=== PATIENT | male | born 1940 | race Caucasian/White ===

== ENCOUNTER 2017-01-15 18:28 | Inpatient (IN) | payer OTHER ==
[2017-01-15] VITALS (10 sets, daily range): BP systolic 82–145; BP diastolic 52–79
[~2017-01-15] VITALS: Ht 167.6 cm; Wt 66.5 kg
[~2017-01-15 18:28] MED LIST: ARAVA10 M1 PO; ASPIRIN ADULT L81 M2 PO; ASPIRIN81 M1 PO; CEFTIN250 MG PO; COREG12.5 M1 PO; COUMADIN5 M2 PO; Coumadin3 MG PO; DUONEB 3 MG/3 ML3 M1 NEB; LOSARTAN POTASS25 M1 PO; PERCOCET 325 MG1 TA2 PO; PLAVIX75 MG PO; PRAVACHOL80 MG PO; PREDNISONE20 M1 PO; PREDNISONE20 MG PO; ROBITUSSIN AC 110 ML PO; VICODIN ES 7.51 EACH PO; VICODIN ES 7501 TAB PO; WARFARIN2 MG PO; ZITHROMAX Z PA250 MG PO
[2017-01-15 18:45] LABS: BASO # 0.1 10*3/uL (0.0-0.1); BASO % 0.4 % (0.0-1.0); EOS # 0.1 10*3/uL (0.0-0.4); EOS % 1.2 % (1.0-4.0); HEMATOCRIT 34.3 % (42.0-52.0); HEMOGLOBIN 10.2 g/dl (14.0-18.0); IG # 0.1 10*3/uL (0.0-0.1); LYMPH # 1.8 10*3/uL (1.3-4.4); LYMPH % 15.3 % (27.0-41.0); MEAN CELL VOLUME 86.6 fl (80.0-94.0); MEAN CORPUSCULAR HGB 25.8 pg (27.0-31.0); MEAN CORPUSCULAR HGB CONC 29.7 g/dl (33.0-37.0); MONO # 0.7 10*3/uL (0.1-1.0); MONO % 5.9 % (3.0-9.0); NEUT # 8.9 10*3/uL (2.3-7.9); NEUT % 76.6 % (47.0-73.0); NUCLEATED RED BLOOD CELL 0.2 % (0.0-0.0); PLATELET COUNT AUTOMATED 285 10*3/uL (130-400); RED BLOOD COUNT 3.96 10*6/uL (4.50-5.90); RED CELL DISTRI WIDTH 21.6 % (0-14.5); WHITE BLOOD COUNT 11.6 10*3/uL (4.8-10.8)
[2017-01-15 19:03] LABS: BILIRUBIN, TOTAL 0.6 mg/dl (0.2-1.0); MAGNESIUM 2.3 mg/dL (1.5-2.1); POTASSIUM 4.3 mmol/L (3.5-5.1); TOTAL PROTEIN 7.6 gm/dL (6.4-8.2)
[2017-01-15 19:05] LABS: TROPONIN I 0.153 ng/ml (<0.045)
[2017-01-15] MEDS ORDERED: CELEBREX100 MG PO (20:34)
[2017-01-15] MEDS ORDERED: COUMADIN5 M2 PO (20:34)
[2017-01-15] MEDS ORDERED: PREDNISONE5 MG PO (20:35)
[2017-01-15 22:39] LABS: INTERNATIONAL NORM RATIO 3.5 (2.0-3.5); PROTHROMBIN TIME 40.2 SECONDS (9.0-12.4)
[2017-01-16] VITALS: BP 116/51
[2017-01-16 04:00] VITALS: BP 117/63
[2017-01-16 05:48] LABS: BASO % 0.1 % (0.0-1.0); HEMATOCRIT 32.2 % (42.0-52.0); HEMOGLOBIN 9.5 g/dl (14.0-18.0); IG # 0.1 10*3/uL (0.0-0.1); LYMPH # 0.8 10*3/uL (1.3-4.4); LYMPH % 9.4 % (27.0-41.0); MEAN CELL VOLUME 86.6 fl (80.0-94.0); MEAN CORPUSCULAR HGB 25.5 pg (27.0-31.0); MEAN CORPUSCULAR HGB CONC 29.5 g/dl (33.0-37.0); MEAN PLATELET VOLUME 10.5 fl (9.6-12.3); MONO # 0.1 10*3/uL (0.1-1.0); MONO % 1.2 % (3.0-9.0); NEUT # 7.1 10*3/uL (2.3-7.9); NEUT % 88.3 % (47.0-73.0); PLATELET COUNT AUTOMATED 262 10*3/uL (130-400); RED BLOOD COUNT 3.72 10*6/uL (4.50-5.90); RED CELL DISTRI WIDTH 21.2 % (0-14.5); WHITE BLOOD COUNT 8.1 10*3/uL (4.8-10.8)
[2017-01-16 06:03] LABS: FREE T4 1.18 ng/dl (0.76-1.46); MAGNESIUM 2.3 mg/dL (1.5-2.1); PHOSPHOROUS 3.3 mg/dL (2.5-4.9); POTASSIUM 3.8 mmol/L (3.5-5.1)
[2017-01-16 06:10] LABS: THYROID STIM HORMONE (HS) 0.607 uIU/ml (0.358-4.75)
[2017-01-16 06:53] LABS: HEMOGLOBIN A1c 5.5 % (4.8-5.6)
[2017-01-16 08:00] VITALS: BP 133/75
[2017-01-16 12:00] VITALS: BP 95/64
[2017-01-16 12:27] LABS: ABG CO2 CONTENT 23.4 mmol/L (23-27); ABG HCO3 22.4 mmol/l (22-26); ABG TEMPERATURE 98.7 F (98.0-99.0); ARTERIAL BLOOD GAS PH 7.432 (7.35-7.45); ARTERIAL BLOOD GAS PO2 64.8 mmHg (80-90)
[2017-01-16 16:00] VITALS: BP 123/69
[2017-01-16 20:00] VITALS: BP 124/67
[2017-01-17] VITALS: BP 123/67
[2017-01-17 04:00] VITALS: BP 131/80
[2017-01-17 06:16] LABS: BASO % 0.1 % (0.0-1.0); HEMATOCRIT 31.4 % (42.0-52.0); HEMOGLOBIN 9.4 g/dl (14.0-18.0); IG # 0.1 10*3/uL (0.0-0.1); LYMPH # 1.1 10*3/uL (1.3-4.4); LYMPH % 7.7 % (27.0-41.0); MEAN CELL VOLUME 87.2 fl (80.0-94.0); MEAN CORPUSCULAR HGB 26.1 pg (27.0-31.0); MEAN CORPUSCULAR HGB CONC 29.9 g/dl (33.0-37.0); MEAN PLATELET VOLUME 10.3 fl (9.6-12.3); MONO # 0.4 10*3/uL (0.1-1.0); MONO % 3.1 % (3.0-9.0); NEUT # 12.6 10*3/uL (2.3-7.9); NEUT % 88.4 % (47.0-73.0); PLATELET COUNT AUTOMATED 250 10*3/uL (130-400); RED CELL DISTRI WIDTH 21.3 % (0-14.5); WHITE BLOOD COUNT 14.2 10*3/uL (4.8-10.8)
[2017-01-17 06:27] LABS: INTERNATIONAL NORM RATIO 3.3 (2.0-3.5); PROTHROMBIN TIME 37.2 SECONDS (9.0-12.4)
[2017-01-17 06:28] LABS: ALBUMIN 2.8 gm/dl (3.1-4.5); MAGNESIUM 2.6 mg/dL (1.5-2.1); POTASSIUM 3.9 mmol/L (3.5-5.1)
[2017-01-17 06:31] LABS: BILIRUBIN, TOTAL 0.4 mg/dl (0.2-1.0); C-REACTIVE PROTEIN 1.58 MG/DL (0-0.3); TOTAL PROTEIN 7.1 gm/dL (6.4-8.2)
[2017-01-17 08:00] VITALS: BP 128/78
== END 2017-01-17 12:14 | disposition left against medical advice (07) | DRG 871 ==
LOC: ED 18:28 → ICCU 19:15 → EDHOLD 19:15 → ICCU 19:27
PROVIDERS: Emergency Medicine; Internal Medicine Cardiovascular Disease; Internal Medicine Hospice and Palliative Medicine
PROC: 5A09457 Assistance with Respiratory Ventilation, 24-96 Consecutive Hours, Continuous Positive Airway Pressure (ICD-10-PCS; principal; 2017-01-15)
DX: A41.9 Sepsis, unspecified organism (principal); J18.9 Pneumonia, unspecified organism; N17.0 Acute kidney failure with tubular necrosis; J96.21 Acute and chronic respiratory failure with hypoxia; I50.43 Acute on chronic combined systolic (congestive) and diastolic (congestive) heart failure; E43 Unspecified severe protein-calorie malnutrition; I13.0 Hypertensive heart and chronic kidney disease with heart failure and stage 1 through stage 4 chronic kidney disease, or unspecified chronic kidney disease; N18.3 Chronic kidney disease, stage 3 (moderate); D64.9 Anemia, unspecified; J44.1 Chronic obstructive pulmonary disease with (acute) exacerbation; J44.0 Chronic obstructive pulmonary disease with (acute) lower respiratory infection; R65.20 Severe sepsis without septic shock; D72.810 Lymphocytopenia; E86.0 Dehydration; R73.9 Hyperglycemia, unspecified; E83.41 Hypermagnesemia; M54.5 Low back pain; G89.29 Other chronic pain; M06.9 Rheumatoid arthritis, unspecified; E78.2 Mixed hyperlipidemia; I25.5 Ischemic cardiomyopathy; F17.200 Nicotine dependence, unspecified, uncomplicated; I49.9 Cardiac arrhythmia, unspecified; Z53.21 Procedure and treatment not carried out due to patient leaving prior to being seen by health care provider; Z53.29 Procedure and treatment not carried out because of patient's decision for other reasons; R91.1 Solitary pulmonary nodule; Z95.1 Presence of aortocoronary bypass graft; Z79.899 Other long term (current) drug therapy; Z71.6 Tobacco abuse counseling; Z95.810 Presence of automatic (implantable) cardiac defibrillator; Z79.82 Long term (current) use of aspirin; Z79.01 Long term (current) use of anticoagulants; Z84.89 Family history of other specified conditions; Z68.25 Body mass index [BMI] 25.0-25.9, adult

== ENCOUNTER 2017-01-22 18:06 | Inpatient (IN) | payer OTHER ==
[~2017-01-22] VITALS: Ht 167.6 cm; Wt 71.8 kg
[~2017-01-22 18:06] MED LIST changes: +CELEBREX100 MG PO; +PREDNISONE5 MG PO
[2017-01-22 18:26] VITALS: BP 149/89
[2017-01-22 18:30] LABS: ABG CO2 CONTENT 28.3 mmol/L (23-27); ABG HCO3 26.6 mmol/l (22-26); ARTERIAL BLOOD GAS PH 7.311 (7.35-7.45); ARTERIAL BLOOD GAS PO2 72.7 mmHg (80-90)
[2017-01-22 18:32] LABS: BASO % 0.2 % (0.0-1.0); EOS # 0.3 10*3/uL (0.0-0.4); EOS % 1.5 % (1.0-4.0); HEMATOCRIT 39.3 % (42.0-52.0); HEMOGLOBIN 11.3 g/dl (14.0-18.0); IG # 0.2 10*3/uL (0.0-0.1); LYMPH # 2.7 10*3/uL (1.3-4.4); LYMPH % 15.4 % (27.0-41.0); MEAN CELL VOLUME 88.7 fl (80.0-94.0); MEAN CORPUSCULAR HGB 25.5 pg (27.0-31.0); MEAN CORPUSCULAR HGB CONC 28.8 g/dl (33.0-37.0); MEAN PLATELET VOLUME 10.3 fl (9.6-12.3); MONO # 1.3 10*3/uL (0.1-1.0); MONO % 7.5 % (3.0-9.0); NEUT # 13.1 10*3/uL (2.3-7.9); NEUT % 74.1 % (47.0-73.0); PLATELET COUNT AUTOMATED 311 10*3/uL (130-400); RED BLOOD COUNT 4.43 10*6/uL (4.50-5.90); RED CELL DISTRI WIDTH 21.8 % (0-14.5); WHITE BLOOD COUNT 17.6 10*3/uL (4.8-10.8)
[2017-01-22 18:42] LABS: INTERNATIONAL NORM RATIO 1.3 (2.0-3.5); PROTHROMBIN TIME 14.3 SECONDS (9.0-12.4)
[2017-01-22 18:51] LABS: ALBUMIN 3.2 gm/dl (3.1-4.5); ALKALINE PHOSPHATASE 106 U/L (45-117); BILIRUBIN, TOTAL 0.9 mg/dl (0.2-1.0); BUN 26 mg/dl (7-24); C-REACTIVE PROTEIN 4.47 MG/DL (0-0.3); CARBON DIOXIDE 30 mmol/L (21-32); CHLORIDE 101 mmol/L (98-107); CKMB 2.6 ng/ml (0.5-3.6); CPK 43 U/L (39-308); EST GLOM FILT AFRICAN AMERICAN > 60 ml/min; GLUCOSE 135 mg/dL (65-99); MAGNESIUM 2.5 mg/dL (1.5-2.1); POTASSIUM 3.9 mmol/L (3.5-5.1); SGOT/AST 18 IU/L (3-35); SGPT/ALT 30 U/L (12-78); SODIUM 142 mmol/L (136-145); TOTAL PROTEIN 7.8 gm/dL (6.4-8.2)
[2017-01-22 18:53] LABS: TROPONIN I 0.281 ng/ml (<0.045)
[2017-01-22 19:00] VITALS: BP 132/72
[2017-01-22 19:34] VITALS: BP 129/70
[2017-01-22 20:24] VITALS: BP 146/80
[2017-01-22 20:30] LABS: LA>2 REFLEX 2 HR DRAW NOW
[2017-01-22 21:17] LABS: LA>2 RFLX FOLLOW UP AT 2 HRS 2.2 mmol/L (0.4-2.0)
[2017-01-22 21:20] LABS: ABG BASE EXCESS 2.8 mmol/L (-2.0-2.0); ABG CO2 CONTENT 27.7 mmol/L (23-27); ABG HCO3 26.5 mmol/l (22-26); ABG TEMPERATURE 97.9 F (98.0-99.0); ARTERIAL BLOOD GAS PH 7.451 (7.35-7.45); ARTERIAL BLOOD GAS PO2 73.2 mmHg (80-90)
[2017-01-22 22:37] VITALS: BP 146/80
[2017-01-22 23:08] LABS: LA>2 REFLEX 4 HR DRAW NOW
[2017-01-23] VITALS: BP 127/70
[2017-01-23 04:00] VITALS: BP 109/64
[2017-01-23 06:03] LABS: BASO % 0.1 % (0.0-1.0); HEMATOCRIT 34.3 % (42.0-52.0); HEMOGLOBIN 10.3 g/dl (14.0-18.0); IG # 0.1 10*3/uL (0.0-0.1); LYMPH # 1.1 10*3/uL (1.3-4.4); LYMPH % 10.1 % (27.0-41.0); MEAN CELL VOLUME 86.8 fl (80.0-94.0); MEAN CORPUSCULAR HGB 26.1 pg (27.0-31.0); MEAN PLATELET VOLUME 10.1 fl (9.6-12.3); MONO # 0.3 10*3/uL (0.1-1.0); MONO % 3.1 % (3.0-9.0); NEUT # 9.1 10*3/uL (2.3-7.9); NEUT % 85.8 % (47.0-73.0); PLATELET COUNT AUTOMATED 254 10*3/uL (130-400); RED BLOOD COUNT 3.95 10*6/uL (4.50-5.90); RED CELL DISTRI WIDTH 21.6 % (0-14.5); WHITE BLOOD COUNT 10.6 10*3/uL (4.8-10.8)
[2017-01-23 06:13] LABS: INTERNATIONAL NORM RATIO 1.3 (2.0-3.5); MAGNESIUM 2.2 mg/dL (1.5-2.1); PHOSPHOROUS 2.9 mg/dL (2.5-4.9); POTASSIUM 4.1 mmol/L (3.5-5.1); PROTHROMBIN TIME 13.7 SECONDS (9.0-12.4)
[2017-01-23 06:23] LABS: FREE T4 1.28 ng/dl (0.76-1.46); THYROID STIM HORMONE (HS) 0.625 uIU/ml (0.358-4.75)
[2017-01-23 06:49] LABS: VITAMIN D, 25-HYDROXY 41.9 ng/mL (30-100)
[2017-01-23 06:50] LABS: FOLIC ACID 11.29 ng/mL (>5.38)
[2017-01-23 08:00] VITALS: BP 110/62
[2017-01-23 12:00] VITALS: BP 114/60
[2017-01-23 16:00] VITALS: BP 98/50
[2017-01-23 20:20] VITALS: BP 107/53
[2017-01-24 00:16] VITALS: BP 112/58
[2017-01-24 04:00] VITALS: BP 104/58
[2017-01-24 06:07] LABS: BASO % 0.1 % (0.0-1.0); HEMOGLOBIN 9.4 g/dl (14.0-18.0); IG # 0.2 10*3/uL (0.0-0.1); LYMPH # 1.1 10*3/uL (1.3-4.4); LYMPH % 6.3 % (27.0-41.0); MEAN CELL VOLUME 85.4 fl (80.0-94.0); MEAN CORPUSCULAR HGB 25.9 pg (27.0-31.0); MEAN CORPUSCULAR HGB CONC 30.3 g/dl (33.0-37.0); MEAN PLATELET VOLUME 10.5 fl (9.6-12.3); MONO # 0.9 10*3/uL (0.1-1.0); NEUT # 15.3 10*3/uL (2.3-7.9); NEUT % 87.3 % (47.0-73.0); PLATELET COUNT AUTOMATED 259 10*3/uL (130-400); RED BLOOD COUNT 3.63 10*6/uL (4.50-5.90); RED CELL DISTRI WIDTH 21.4 % (0-14.5); WHITE BLOOD COUNT 17.5 10*3/uL (4.8-10.8)
[2017-01-24 06:10] LABS: POTASSIUM 3.9 mmol/L (3.5-5.1)
[2017-01-24 06:29] LABS: INTERNATIONAL NORM RATIO 1.2 (2.0-3.5); PROTHROMBIN TIME 12.8 SECONDS (9.0-12.4)
[2017-01-24 08:00] VITALS: BP 106/57
[2017-01-24 12:00] VITALS: BP 107/56
[2017-01-24 16:00] VITALS: BP 105/48
[2017-01-24 20:00] VITALS: BP 97/47
[2017-01-25] VITALS: BP 102/50
[2017-01-25 05:18] VITALS: BP 99/71
[2017-01-25 06:53] LABS: HEMATOCRIT 30.9 % (42.0-52.0); HEMOGLOBIN 9.1 g/dl (14.0-18.0); MEAN CELL VOLUME 87.3 fl (80.0-94.0); MEAN CORPUSCULAR HGB 25.7 pg (27.0-31.0); MEAN CORPUSCULAR HGB CONC 29.4 g/dl (33.0-37.0); MEAN PLATELET VOLUME 10.4 fl (9.6-12.3); PLATELET COUNT AUTOMATED 260 10*3/uL (130-400); RED BLOOD COUNT 3.54 10*6/uL (4.50-5.90); RED CELL DISTRI WIDTH 21.4 % (0-14.5); WHITE BLOOD COUNT 19.8 10*3/uL (4.8-10.8)
[2017-01-25 07:18] LABS: POTASSIUM 3.9 mmol/L (3.5-5.1)
[2017-01-25 07:19] LABS: LYMPHOCYTE # 2.2 10*3/uL (1.3-4.4); MONOCYTE # 1.8 10*3/uL (0.1-1.0); NEUTROPHIL # 15.8 10*3/uL (2.3-7.9); NEUTROPHILS 80 % (47-73); TOTAL CELLS COUNTED 100 #CELLS
[2017-01-25 07:20] LABS: PLATELET SUFFICIENCY NORMAL (NORMAL); POLYCHROMASIA SLIGHT
[2017-01-25 07:22] LABS: INTERNATIONAL NORM RATIO 1.2 (2.0-3.5); PROTHROMBIN TIME 12.7 SECONDS (9.0-12.4)
[2017-01-25 08:00] VITALS: BP 100/54
[2017-01-25 12:00] VITALS: BP 103/52
[2017-01-25] MEDS ORDERED: PREDNISONE10 MG PO (12:34)
[2017-01-25] MEDS ORDERED: COUMADIN7.5 M1 PO (12:34)
[2017-01-25] MEDS ORDERED: CARVEDILOL3.125 MG PO (12:34)
[2017-01-25] MEDS ORDERED: IMDUR SA30 MG PO (12:34)
[2017-01-25] MEDS ORDERED: LASIX40 MG PO (12:34)
[2017-01-25] MEDS ORDERED: APRESOLINE10 MG PO (12:34)
[2017-01-25] MEDS ORDERED: LEVAQUIN750 M1 PO (12:34)
[2017-01-25 16:00] VITALS: BP 104/53
== END 2017-01-25 16:55 | disposition home or self-care (01) | DRG 871 ==
LOC: ED 18:06 → EDHOLD 18:48 → ICCU 18:48 → EDHOLD 19:32 → ICCU 19:38 → 5E 01-24 13:38
PROVIDERS: Emergency Medicine; Internal Medicine; Internal Medicine Cardiovascular Disease; Internal Medicine Critical Care Medicine; Internal Medicine Hospice and Palliative Medicine
PROC: 5A09457 Assistance with Respiratory Ventilation, 24-96 Consecutive Hours, Continuous Positive Airway Pressure (ICD-10-PCS; principal; 2017-01-22)
DX: A41.9 Sepsis, unspecified organism (principal); I50.41 Acute combined systolic (congestive) and diastolic (congestive) heart failure; J96.21 Acute and chronic respiratory failure with hypoxia; E44.0 Moderate protein-calorie malnutrition; J18.9 Pneumonia, unspecified organism; I13.0 Hypertensive heart and chronic kidney disease with heart failure and stage 1 through stage 4 chronic kidney disease, or unspecified chronic kidney disease; Z99.81 Dependence on supplemental oxygen; I48.0 Paroxysmal atrial fibrillation; J96.22 Acute and chronic respiratory failure with hypercapnia; J44.1 Chronic obstructive pulmonary disease with (acute) exacerbation; J44.0 Chronic obstructive pulmonary disease with (acute) lower respiratory infection; N18.3 Chronic kidney disease, stage 3 (moderate); D64.9 Anemia, unspecified; R65.20 Severe sepsis without septic shock; Z66 Do not resuscitate; Z51.5 Encounter for palliative care; F17.210 Nicotine dependence, cigarettes, uncomplicated; R73.9 Hyperglycemia, unspecified; E83.41 Hypermagnesemia; I25.5 Ischemic cardiomyopathy; M54.5 Low back pain; G89.29 Other chronic pain; E78.2 Mixed hyperlipidemia; M06.9 Rheumatoid arthritis, unspecified; Z95.810 Presence of automatic (implantable) cardiac defibrillator; Z95.5 Presence of coronary angioplasty implant and graft; Z71.6 Tobacco abuse counseling; Z95.1 Presence of aortocoronary bypass graft; Z79.82 Long term (current) use of aspirin; Z79.01 Long term (current) use of anticoagulants; Z79.899 Other long term (current) drug therapy; Z68.24 Body mass index [BMI] 24.0-24.9, adult

== ENCOUNTER 2017-01-29 05:23 | Inpatient (IN) | payer OTHER ==
[~2017-01-29] VITALS: Ht 167.6 cm; Wt 69.0 kg
[2017-01-29] VITALS (8 sets, daily range): BP systolic 95–134; BP diastolic 50–84
--- NOTE | ~2017-01-29 | PR ---
[place], [place] PROGRESS NOTE [facility]: [id number] UNIT #: [id number] ROOM: 403 DOCTOR: ARIES ENGEL MD BIRTHDATE: [birth year] DOS: SUBJECTIVE: The patient is sleeping, easily arousable, appears to be flat in bed, does not appear in distress. Denies any specific cardiac complaint. No chest pain, no chest pressure, no symptomatic palpitation. Improved shortness of breath. PHYSICAL EXAMINATION: VITAL SIGNS: Blood pressure 108/46, heart rate 99, respiratory rate of 20, temperature 98.2. NECK: Good upstroke. HEART: S1, S2 with no rub. LUNGS: Significant decreased air movement, cardiac rhonchi that improved slightly with deep cough. ABDOMEN: Soft, nontender, present bowel sounds. EXTREMITIES: Lower extremities, no significant edema. LABORATORY DATA: White count 13.2, hemoglobin 9.5, potassium 3.7, GFR is 453%. ASSESSMENT AND PLAN: 1. Recurrent presentation with decompensated congestive heart failure in a patient who is well known to be noncompliant. Currently, the patient appears to be improving almost at euvolemic status. Vital sign does not support any further titration of his medication. I will continue with current medical regimen and he can be considered for discharge this afternoon. 2. Follow up with Dr. Ballard as an outpatient within our clinic here in [place] within a few weeks. 3. Consider cardiac rehab. 4. Consider congestive heart failure clinic as an outpatient. ARIES ENGEL MD CM:PNTRANS [id number] ARIES ENGEL MD 02/03/17 1139 interface
--- NOTE | ~2017-01-29 | PROC NOTE ---
[place], [place] PROCEDURE NOTE NAME: SHAHANA STEWARD [facility] #: [id number] UNIT #: [id number] ROOM: 403 DOCTOR: CIARA MIRANDA MD,ERINN BIRTHDATE: [birth year] DOS: 01/30/2017 PROCEDURE: Right-sided ultrasound guided thoracentesis. PREOPERATIVE DIAGNOSIS: The patient with persistent right-sided pleural fluid. The patient not responding to the current treatment. POSTOPERATIVE DIAGNOSIS: Removal of 750 mL of right pleural fluid from the patient without any difficulty at the bedside with ultrasound guidance. PROCEDURE DESCRIPTION: Informed consent obtained for the patient. The patient was placed in sitting position. Ultrasound of the chest for the patient was performed. The patient at the bedside. The skin was cleaned with chlorhexidine solution. After that, 1% lidocaine administered into the skin and intercostal space. During administration of local anesthetic, a small amount of fluid was aspirated successfully. After that, a small incision given in the skin. Turkel thoracentesis catheter introduced through the incision into the right pleural space with a total of 750 mL of pleural fluid was removed without any difficulty. The pleural fluid was sent for all the appropriate testing. No complications noted during and after the procedure. ERINN URBINA MD CM:PROCNOTE:PROCEDURE NOTE [id number] ERINN MIRANDA MD
--- NOTE | ~2017-01-29 | PROC NOTE ---
[place], [place] PROCEDURE NOTE NAME: SHAHANA STEWARD [facility] #: [id number] UNIT #: [id number] ROOM: 403 DOCTOR: CIARA MIRANDA MD,ERINN BIRTHDATE: [birth year] DOS: 01/30/2017 PROCEDURE: Left-sided ultrasound guided thoracentesis. PREOPERATIVE DIAGNOSIS: The patient with persistent left-sided pleural fluid. The patient not responding to the current treatment. POSTOPERATIVE DIAGNOSIS: Removal of 550 mL of left pleural fluid from the patient without any difficulty at the bedside with ultrasound guidance. PROCEDURE DESCRIPTION: Informed consent obtained for the patient. The patient was placed in sitting position. Ultrasound of the chest for the patient was performed. The patient at the bedside. The skin was cleaned with chlorhexidine solution. After that, 1% lidocaine administered into the skin and intercostal space. During administration of local anesthetic, a small amount of fluid was aspirated successfully. After that, a small incision given in the skin. Turkel thoracentesis catheter introduced through the incision into the left pleural space with a total of 550 mL of pleural fluid was removed without any difficulty. The pleural fluid was sent for all the appropriate testing. No complications noted during and after the procedure. Chest x-ray of the patient, which was done post-procedure was personally reviewed, shows marked reexpansion of the lungs without any procedure-related complication. ERINN URBINA MD CM:PROCNOTE:PROCEDURE NOTE [phone] ERINN MIRANDA MD
--- NOTE | ~2017-01-29 | PR ---
[place], [place] PROGRESS NOTE NAME: SHAHANA STEWARD UNIT #: [id number] ROOM: 403 DOCTOR: ERINN MCCRARY MD BIRTHDATE: [birth year] DOS: 02/02/2017 SUBJECTIVE: Patient noted and he is comfortable at this time, sitting on the bed. Complaining of increased shortness of breath in the last 24 hours. Not noted shortness of breath at rest. The patient denies symptoms of chest pain. Mild cough was noted. There was no wheezing. Denies abdominal pain. OBJECTIVE: VITAL SIGNS: Shows normal temperature, respiratory rate 20, heart rate 94, blood pressure 104/80. Pulse oxygen saturation noted on 3 liters canula 95% saturation. HEENT: Examination shows no acute change. CARDIOVASCULAR: S1, S2 audible. LUNGS: Shows ifzu-mn-vsifejmo decreased breath sounds. Scattered crackles in the lungs were noted. There was no wheezing. ABDOMEN: Soft, nontender. LABORATORY DATA: INR noted at 2.9, which is therapeutic. BMP: BUN 28, creatinine was normal. Chest x-ray that has been done for the patient this morning was reviewed, shows evidence of pulmonary venous congestion and congestive heart failure findings with small pleural fluids. IMPRESSION: 1. The patient with resolving acute congestive heart failure with some increased symptoms noted with early recurrent congestive heart failure again. 2. History of cardiomyopathy. 3. Resolving acute exacerbation of chronic obstructive pulmonary disease. 4. Therapeutic INR for the patient. PLAN OF TREATMENT: Continuation of the current medical management. Diuretic therapy per liking of the Cardiology Services. I will be closely monitoring the patient for the congestive heart failure management. Continue in the meantime other previous therapy, plan of management as in progress. Usual care. Supportive plan of management and other treatments. [place], [place] PROGRESS NOTE NAME: SHAHANA STEWARD UNIT #: [id number] ROOM: 403 DOCTOR: ERINN MCCRARY MD BIRTHDATE: [birth year] ERINN URBINA MD CM:PNTRANS [id number] ERINN MIRANDA MD 02/02/17 1633 interface
[~2017-01-29 05:23] MED LIST changes: +APRESOLINE10 MG PO; +CARVEDILOL3.125 MG PO; +COUMADIN7.5 M1 PO; +IMDUR SA30 MG PO; +LASIX40 MG PO; +LEVAQUIN750 M1 PO; +PREDNISONE10 MG PO
[2017-01-29 06:01] LABS: BASO % 0.2 % (0.0-1.0); EOS # 0.2 10*3/uL (0.0-0.4); HEMATOCRIT 35.9 % (42.0-52.0); HEMOGLOBIN 10.6 g/dl (14.0-18.0); IG # 0.1 10*3/uL (0.0-0.1); LYMPH # 2.1 10*3/uL (1.3-4.4); LYMPH % 12.9 % (27.0-41.0); MEAN CELL VOLUME 86.5 fl (80.0-94.0); MEAN CORPUSCULAR HGB 25.5 pg (27.0-31.0); MEAN CORPUSCULAR HGB CONC 29.5 g/dl (33.0-37.0); MEAN PLATELET VOLUME 10.6 fl (9.6-12.3); MONO # 0.8 10*3/uL (0.1-1.0); MONO % 4.7 % (3.0-9.0); NEUT # 13.3 10*3/uL (2.3-7.9); NEUT % 80.4 % (47.0-73.0); PLATELET COUNT AUTOMATED 249 10*3/uL (130-400); RED BLOOD COUNT 4.15 10*6/uL (4.50-5.90); RED CELL DISTRI WIDTH 21.6 % (0-14.5); WHITE BLOOD COUNT 16.5 10*3/uL (4.8-10.8)
[2017-01-29 06:27] LABS: BUN 31 mg/dl (7-24); CARBON DIOXIDE 27 mmol/L (21-32); CHLORIDE 103 mmol/L (98-107); EST GLOM FILT AFRICAN AMERICAN > 60 ml/min; GLUCOSE 129 mg/dL (65-99); MAGNESIUM 2.4 mg/dL (1.5-2.1); SODIUM 141 mmol/L (136-145)
[2017-01-29 06:32] LABS: TROPONIN I 0.228 ng/ml (<0.045)
[2017-01-29 08:21] LABS: INTERNATIONAL NORM RATIO 1.2 (2.0-3.5); PROTHROMBIN TIME 12.3 SECONDS (9.0-12.4)
[2017-01-30] VITALS: BP 92/57
[2017-01-30 04:00] VITALS: BP 98/65
[2017-01-30 07:00] LABS: BASO % 0.1 % (0.0-1.0); EOS # 0.2 10*3/uL (0.0-0.4); EOS % 1.2 % (1.0-4.0); HEMATOCRIT 32.1 % (42.0-52.0); HEMOGLOBIN 9.7 g/dl (14.0-18.0); IG # 0.1 10*3/uL (0.0-0.1); LYMPH # 2.8 10*3/uL (1.3-4.4); MEAN CELL VOLUME 85.6 fl (80.0-94.0); MEAN CORPUSCULAR HGB 25.9 pg (27.0-31.0); MEAN CORPUSCULAR HGB CONC 30.2 g/dl (33.0-37.0); MEAN PLATELET VOLUME 10.4 fl (9.6-12.3); MONO % 6.4 % (3.0-9.0); NEUT # 11.4 10*3/uL (2.3-7.9); NEUT % 73.5 % (47.0-73.0); PLATELET COUNT AUTOMATED 233 10*3/uL (130-400); RED BLOOD COUNT 3.75 10*6/uL (4.50-5.90); RED CELL DISTRI WIDTH 21.3 % (0-14.5); WHITE BLOOD COUNT 15.6 10*3/uL (4.8-10.8)
[2017-01-30 07:20] LABS: HEMOGLOBIN A1c 5.4 % (4.8-5.6)
[2017-01-30 07:30] LABS: INTERNATIONAL NORM RATIO 1.2 (2.0-3.5); PROTHROMBIN TIME 12.3 SECONDS (9.0-12.4)
[2017-01-30 07:31] LABS: ALBUMIN 2.7 gm/dl (3.1-4.5); BILIRUBIN, TOTAL 0.4 mg/dl (0.2-1.0); FREE T4 1.03 ng/dl (0.76-1.46); MAGNESIUM 2.2 mg/dL (1.5-2.1); POTASSIUM 3.5 mmol/L (3.5-5.1); TOTAL PROTEIN 6.5 gm/dL (6.4-8.2)
[2017-01-30 07:35] LABS: THYROID STIM HORMONE (HS) 1.81 uIU/ml (0.358-4.75)
[2017-01-30 08:00] VITALS: BP 105/58
[2017-01-30 08:43] LABS: FOLIC ACID 7.31 ng/mL (>5.38)
[2017-01-30 11:10] LABS: BODY FLUID RBC < 1000 /uL; BODY FLUID WBC 35 /uL
[2017-01-30 11:12] LABS: BODY FLUID RBC < 1000 /uL; BODY FLUID WBC 16 /uL
[2017-01-30 11:24] LABS: BODY FLUID ALBUMIN 0.8 g/dL; BODY FLUID AMYLASE 21 U/L; BODY FLUID CHOLESTEROL < 50 mg/dl; BODY FLUID GLUCOSE 126 mg/dl; BODY FLUID LDH 72 IU/L; BODY FLUID PROTEIN 1.4 g/dl; BODY FLUID TRIGLYCERIDE 5 mg/dl
[2017-01-30 11:25] LABS: BODY FLUID ALBUMIN 0.8 g/dL; BODY FLUID AMYLASE 24 U/L; BODY FLUID CHOLESTEROL < 50 mg/dl; BODY FLUID GLUCOSE 130 mg/dl; BODY FLUID LDH 72 IU/L; BODY FLUID PROTEIN 1.4 g/dl; BODY FLUID TRIGLYCERIDE 4 mg/dl
[2017-01-30 11:45] VITALS: BP 97/75
[2017-01-30 11:47] LABS: BF LYMPHOCYTES 23 %; BF MACROPHAGES 43 %; BF MESOTHELIALS 2 %; BF NEUTROPHILS 32 %; BODY FLUID TYPE PLEURAL
[2017-01-30 11:59] LABS: BF LYMPHOCYTES 23 %; BF MACROPHAGES 39 %; BF MESOTHELIALS 4 %; BF MONOCYTES 2 %; BF NEUTROPHILS 32 %
[2017-01-30 12:00] LABS: BODY FLUID TYPE PLEURAL
[2017-01-30 16:00] VITALS: BP 98/62
[2017-01-30 20:00] VITALS: BP 107/65
[2017-01-31] VITALS: BP 116/59
[2017-01-31 06:04] LABS: BASO % 0.2 % (0.0-1.0); EOS # 0.3 10*3/uL (0.0-0.4); EOS % 2.2 % (1.0-4.0); HEMOGLOBIN 9.3 g/dl (14.0-18.0); IG # 0.1 10*3/uL (0.0-0.1); LYMPH # 3.6 10*3/uL (1.3-4.4); MEAN CELL VOLUME 86.1 fl (80.0-94.0); MEAN CORPUSCULAR HGB 25.8 pg (27.0-31.0); MONO # 0.9 10*3/uL (0.1-1.0); MONO % 7.4 % (3.0-9.0); NEUT # 7.8 10*3/uL (2.3-7.9); NEUT % 61.2 % (47.0-73.0); PLATELET COUNT AUTOMATED 200 10*3/uL (130-400); RED CELL DISTRI WIDTH 21.4 % (0-14.5); WHITE BLOOD COUNT 12.7 10*3/uL (4.8-10.8)
[2017-01-31 06:22] LABS: POTASSIUM 3.2 mmol/L (3.5-5.1)
[2017-01-31 06:45] LABS: INTERNATIONAL NORM RATIO 1.3 (2.0-3.5); PROTHROMBIN TIME 14.4 SECONDS (9.0-12.4)
[2017-01-31 08:00] VITALS: BP 99/53
[2017-01-31 12:00] VITALS: BP 87/60
[2017-01-31 14:18] VITALS: BP 110/59
[2017-01-31 16:00] VITALS: BP 95/53
[2017-01-31 20:00] VITALS: BP 99/53
[2017-02-01] VITALS: BP 98/70
[2017-02-01 06:02] LABS: BASO % 0.3 % (0.0-1.0); EOS # 0.2 10*3/uL (0.0-0.4); EOS % 2.1 % (1.0-4.0); HEMATOCRIT 31.6 % (42.0-52.0); HEMOGLOBIN 9.4 g/dl (14.0-18.0); IG # 0.1 10*3/uL (0.0-0.1); LYMPH # 2.9 10*3/uL (1.3-4.4); LYMPH % 25.7 % (27.0-41.0); MEAN CELL VOLUME 86.3 fl (80.0-94.0); MEAN CORPUSCULAR HGB 25.7 pg (27.0-31.0); MEAN CORPUSCULAR HGB CONC 29.7 g/dl (33.0-37.0); MEAN PLATELET VOLUME 10.8 fl (9.6-12.3); MONO # 0.8 10*3/uL (0.1-1.0); MONO % 7.3 % (3.0-9.0); NEUT # 7.2 10*3/uL (2.3-7.9); NEUT % 63.8 % (47.0-73.0); PLATELET COUNT AUTOMATED 196 10*3/uL (130-400); RED BLOOD COUNT 3.66 10*6/uL (4.50-5.90); RED CELL DISTRI WIDTH 21.4 % (0-14.5); WHITE BLOOD COUNT 11.3 10*3/uL (4.8-10.8)
[2017-02-01 06:09] LABS: INTERNATIONAL NORM RATIO 1.9 (2.0-3.5); PROTHROMBIN TIME 20.5 SECONDS (9.0-12.4)
[2017-02-01 06:21] LABS: BUN 30 mg/dl (7-24); CARBON DIOXIDE 31 mmol/L (21-32); CHLORIDE 102 mmol/L (98-107); EST GLOM FILT AFRICAN AMERICAN > 60 ml/min; GLUCOSE 101 mg/dL (65-99); POTASSIUM 3.8 mmol/L (3.5-5.1); SODIUM 141 mmol/L (136-145)
[2017-02-01 08:00] VITALS: BP 95/59
[2017-02-01 12:00] VITALS: BP 104/59
[2017-02-01 16:00] VITALS: BP 102/61
[2017-02-01 20:00] VITALS: BP 109/55
[2017-02-02] VITALS (7 sets, daily range): BP systolic 104–128; BP diastolic 51–80
[2017-02-02 01:23] LABS: MAGNESIUM 1.7 mg/dL (1.5-2.1)
[2017-02-02 01:24] LABS: POTASSIUM 3.7 mmol/L (3.5-5.1)
[2017-02-02 06:48] LABS: BUN 28 mg/dl (7-24); CARBON DIOXIDE 30 mmol/L (21-32); CHLORIDE 103 mmol/L (98-107); EST GLOM FILT AFRICAN AMERICAN > 60 ml/min; GLUCOSE 98 mg/dL (65-99); POTASSIUM 3.9 mmol/L (3.5-5.1); SODIUM 140 mmol/L (136-145)
[2017-02-02 06:50] LABS: INTERNATIONAL NORM RATIO 2.9 (2.0-3.5); PROTHROMBIN TIME 32.3 SECONDS (9.0-12.4)
[2017-02-02 10:58] LABS: ABG BASE EXCESS -2.8 mmol/L (-2.0-2.0); ABG CO2 CONTENT 26.9 mmol/L (23-27); ABG TEMPERATURE 97.4 F (98.0-99.0); ARTERIAL BLOOD GAS PH 7.239 (7.35-7.45); ARTERIAL BLOOD GAS PO2 83.7 mmHg (80-90)
[2017-02-03] VITALS: BP 110/58
[2017-02-03 06:52] LABS: BASO % 0.2 % (0.0-1.0); EOS # 0.2 10*3/uL (0.0-0.4); EOS % 1.7 % (1.0-4.0); HEMATOCRIT 32.4 % (42.0-52.0); HEMOGLOBIN 9.5 g/dl (14.0-18.0); IG # 0.1 10*3/uL (0.0-0.1); LYMPH # 2.3 10*3/uL (1.3-4.4); LYMPH % 17.7 % (27.0-41.0); MEAN CORPUSCULAR HGB 24.9 pg (27.0-31.0); MEAN CORPUSCULAR HGB CONC 29.3 g/dl (33.0-37.0); MEAN PLATELET VOLUME 10.7 fl (9.6-12.3); MONO # 0.7 10*3/uL (0.1-1.0); MONO % 5.4 % (3.0-9.0); NEUT # 9.8 10*3/uL (2.3-7.9); NEUT % 74.2 % (47.0-73.0); PLATELET COUNT AUTOMATED 201 10*3/uL (130-400); RED BLOOD COUNT 3.81 10*6/uL (4.50-5.90); RED CELL DISTRI WIDTH 21.6 % (0-14.5); WHITE BLOOD COUNT 13.2 10*3/uL (4.8-10.8)
[2017-02-03 07:23] LABS: INTERNATIONAL NORM RATIO 2.7 (2.0-3.5); PROTHROMBIN TIME 30.1 SECONDS (9.0-12.4)
[2017-02-03 07:39] LABS: CHLORIDE 102 mmol/L (98-107); POTASSIUM 3.7 mmol/L (3.5-5.1); SODIUM 142 mmol/L (136-145)
[2017-02-03 07:45] LABS: BUN 31 mg/dl (7-24); CARBON DIOXIDE 29 mmol/L (21-32); EST GLOM FILT AFRICAN AMERICAN > 60 ml/min; GLUCOSE 95 mg/dL (65-99)
[2017-02-03 08:00] VITALS: BP 104/51; BP 108/46
[2017-02-03 12:00] VITALS: BP 112/52
[2017-02-03] MEDS ORDERED: HYDRALAZINE HYD50 MG PO (12:57)
[2017-02-03] MEDS ORDERED: DOXYCYCLINE MO100 M1 PO (12:57)
[2017-02-03] MEDS ORDERED: COUMADIN7.5 M1 PO (12:57)
[2017-02-03] MEDS ORDERED: Isordil20 MG PO (12:57)
[2017-02-03] MEDS ORDERED: CARVEDILOL6.25 MG PO (12:57)
[2017-02-03] MEDS ORDERED: BIPAP DEVI (14:31)
== END 2017-02-03 15:20 | disposition other institution (70) | DRG 871 ==
LOC: ED 05:23 → EDHOLD 06:59 → 4E 06:59 → 5E 07:22 → 4E 07:38
PROVIDERS: Emergency Medicine; Emergency Medicine Emergency Medical Services; Hospitalist; Internal Medicine; Internal Medicine Cardiovascular Disease; Internal Medicine Critical Care Medicine
DX: A41.9 Sepsis, unspecified organism (principal); I50.43 Acute on chronic combined systolic (congestive) and diastolic (congestive) heart failure; J96.21 Acute and chronic respiratory failure with hypoxia; J18.9 Pneumonia, unspecified organism; J90 Pleural effusion, not elsewhere classified; J44.0 Chronic obstructive pulmonary disease with (acute) lower respiratory infection; E44.0 Moderate protein-calorie malnutrition; I13.0 Hypertensive heart and chronic kidney disease with heart failure and stage 1 through stage 4 chronic kidney disease, or unspecified chronic kidney disease; D68.32 Hemorrhagic disorder due to extrinsic circulating anticoagulants; J44.1 Chronic obstructive pulmonary disease with (acute) exacerbation; Z99.81 Dependence on supplemental oxygen; N18.3 Chronic kidney disease, stage 3 (moderate); M06.9 Rheumatoid arthritis, unspecified; R65.20 Severe sepsis without septic shock; Z66 Do not resuscitate; Z51.5 Encounter for palliative care; F17.210 Nicotine dependence, cigarettes, uncomplicated; I25.5 Ischemic cardiomyopathy; E78.2 Mixed hyperlipidemia; T45.515A Adverse effect of anticoagulants, initial encounter; I25.10 Atherosclerotic heart disease of native coronary artery without angina pectoris; M54.5 Low back pain; G89.29 Other chronic pain; Z79.01 Long term (current) use of anticoagulants; Z68.24 Body mass index [BMI] 24.0-24.9, adult; Z95.5 Presence of coronary angioplasty implant and graft; Z95.1 Presence of aortocoronary bypass graft; Z95.810 Presence of automatic (implantable) cardiac defibrillator; Z91.19 Patient's noncompliance with other medical treatment and regimen; Z79.82 Long term (current) use of aspirin; Z79.899 Other long term (current) drug therapy; Y92.89 Other specified places as the place of occurrence of the external cause

== ENCOUNTER 2017-02-13 10:06 | Inpatient (IN) | payer OTHER ==
[~2017-02-13] VITALS: Ht 168 cm; Wt 67.1 kg
[2017-02-13] VITALS (8 sets, daily range): BP systolic 90–138; BP diastolic 48–75
--- NOTE | ~2017-02-13 | PR ---
[place], [place] PROGRESS NOTE NAME: SHAHANA STEWARD [facility] #: [id number] UNIT #: [id number] ROOM: [facility] DOCTOR: CIARA MIRANDA MD,ERINN BIRTHDATE: [birth year] DOS: 02/16/2017 PULMONARY FOLLOWUP SUBJECTIVE: The patient has been doing well at this time. He had been suggested for the hospice assessment and hospital admission because of his advanced cardiomyopathy and COPD and other problems. The patient is agreeable for that. He denies symptoms of ongoing chest pain, coughing or sputum expectoration. OBJECTIVE: VITAL SIGNS: Normal temperature, respiratory rate 13, heart rate 83, blood pressure 114/79. The pulse oxygen saturation of the patient recorded on 2 liters nasal cannula 96% saturation. HEENT: Showed no acute change. NECK: Supple. CARDIOVASCULAR: S1, S2 audible. LUNGS: Noted without any wheezing or crackles at this time. Breaths are noted mildly decreased bilaterally in the lower lungs. ABDOMEN: Soft, nontender. LABORATORY DATA: INR noted 2.5, which is therapeutic today. IMPRESSION: Advanced cardiomyopathy with history of chronic hypercapnic hypoxic respiratory failure with ernki-sa-novriem hypercapnic hypoxic respiratory failure with congestive heart failure and exacerbation of chronic obstructive pulmonary disease. PLAN OF TREATMENT: Appropriate for hospital discharge that may occur today. No other changes in medical management. The patient was provided the BiPAP treatment by the hospitalist services. He would not be getting any noninvasive ventilator at this time, which has been previously processed. ERINN URBINA MD CM:PNTRANS [id number] ERINN MIRANDA MD 02/16/17 1626 interface
--- NOTE | ~2017-02-13 | PR ---
[place], [place] PROGRESS NOTE NAME: SHAHANA STEWARD UNIT #: [id number] ROOM: [facility] DOCTOR: CIARA MIRANDA MD,ERINN BIRTHDATE: [birth year] DOS: 02/15/2017 PULMONARY FOLLOWUP NOTE SUBJECTIVE: The patient has been noted comfortable with continued reduction and improvement in the respiratory symptoms. Noted shortness of breath is improving. Denies symptoms of chest pain or any abdominal pain. The patient denies symptoms of hemoptysis. There was no edema of the lower extremity describes. OBJECTIVE: VITAL SIGNS: Normal temperature, respiratory rate 20, heart rate 87, blood pressure ____ this morning. Intake of 1400, output 600 mL. Pulse oxygen saturation on 3 L nasal cannula 96% saturation. HEENT: Noted without any acute changes. NECK: Supple. CARDIOVASCULAR: S1, S2 audible. LUNGS: Noted without any wheeze or crackles at this time. ABDOMEN: Soft, nontender. LABORATORY DATA: PT/INR was noted as 4.2. BMP this morning, BUN 50, creatinine 1.47, glucose 181. Albumin 2.8. CBC of this morning, WBC count 15.3, hemoglobin 8.3, hematocrit 28.0, platelet count 272,000. IMPRESSION: 1. The patient who has been currently noted with acute on chronic severe hypoxic and hypercapnic respiratory failure. 2. Acute exacerbation of chronic obstructive pulmonary disease. 3. Acute congestive heart failure with systolic dysfunction. 4. History of past tobacco use. 5. Mild Coumadin toxicity. PLAN OF MANAGEMENT: The patient will be continued on current BiPAP treatment. Continuation of the bronchodilators and oxygen supplementation. Corticosteroid dose will be further reduced for this patient tomorrow to 40 mg b.i.d. The patient will benefit from use of noninvasive ventilator such as Trilogy for the medical management of the current respiratory failure secondary to COPD. The patient required the home ventilator to reduce the work of breathing and improve his pulmonary status. The case management of patient will be making the arrangement for this treatment to the [facility]. Continue to adjust the medication, Coumadin to maintain a therapeutic INR. All other supportive plan of management. Usual care. Continuation of current antibiotics. [place], [place] PROGRESS NOTE NAME: SHAHANA STEWARD UNIT #: [id number] ROOM: [facility] DOCTOR: ERINN MCCRARY MD BIRTHDATE: [birth year] ERINN URBINA MD CM:PNTRANS [phone] ERINN MIRANDA MD 02/15/17 1836 interface
--- NOTE | ~2017-02-13 | PR ---
[place], [place] PROGRESS NOTE NAME: SHAHANA STEWARD UNIT #: [id number] ROOM: [facility] DOCTOR: MARQUITA LAKE MD BIRTHDATE: [birth year] DOS: SUBJECTIVE: The patient was seen at his bedside in the intensive care unit today for followup of his recent non-ST elevation myocardial infarction and ischemic cardiomyopathy. The patient feels well today. He is saturating reasonably well with oxygen by nasal cannula. He denies any chest pain and has not had any significant orthopnea. As noted yesterday, his ICD battery is at the end of its projected life. The battery will still charged the defibrillator, but it takes longer than ideal. The patient knows this and does not want to have the device replaced. PHYSICAL EXAMINATION: VITAL SIGNS: Today, his pulse is 82 and regular, blood pressure is 107/65. He is afebrile. NECK: Supple. He has no jugular distention. Carotids are full. LUNGS: Respirations are unlabored. He has decreased breath sounds at the bases with rales at the bases. HEART: Has a regular rhythm. He has an S4 gallop, but I did not hear an S3 today. ABDOMEN: Soft and normally active. EXTREMITIES: Showed no edema. IMPRESSIONS: 1. Acute non-ST elevation myocardial infarction. 2. Long-term and ongoing cigarette abuse. 3. Severe chronic obstructive pulmonary disease, which is probably at end-stage. 4. History of coronary artery disease, status post bypass surgery. 5. Severe ischemic cardiomyopathy with baseline ejection fraction 10-15%. 6. Implantable cardioverter defibrillator in place, the device is at the end of its life. The patient refuses to have the generator changed. The patient has decided to seek support from the hospitalist team. I think the bedside in an excellent decision since they will help to keep him comfortable and out of the hospital. He probably will be discharged within the next 24 hours. We thank the hospitalist group for asking our advice regarding his care. [place], [place] PROGRESS NOTE NAME: SHAHANA STEWARD UNIT #: [id number] ROOM: [facility] DOCTOR: MARQUITA LAKE MD BIRTHDATE: [birth year] MARQUITA LAKE MD CM:PNTRANS [phone] MARQUITA LAKE MD 02/15/172152 interface
--- NOTE | ~2017-02-13 | CON ---
[place], [place] REPORT OF CONSULTATION NAME: SHAHANA STEWARD [facility] #: [id number] UNIT #: [id number] ROOM: [facility] DOCTOR: ERINN MCCRARY MD BIRTHDATE: [birth year] DOS: 02/14/2017 PULMONARY CONSULTATION EVALUATION AND MANAGEMENT CONSULTATION REQUESTED BY: Hospitalist service. REASON FOR CONSULTATION: Assessment of [id number] respiratory failure. HISTORY OF PRESENT ILLNESS: A 76-year-old white male known with history of advanced COPD, chronic hypercapnic and hypoxic respiratory failure as well as congestive heart failure with significant severe cardiomyopathy. The patient presented to hospital Emergency Room on 02/13/2017. He reported symptoms of having increased shortness of breath that occurs with cowz-ym-suxtgaop exertion and sometimes at rest as well. He does have mild cough without any sputum expectoration. The patient was treated at [facility] and recently discharged home. He denies any symptoms of wheezing. He denies symptoms of chest pain. The patient has been noted continued use of tobacco products as well. This morning, the patient stated reduction in respiratory symptom. He denies any symptoms of acute chest pain. REVIEW OF SYSTEMS: CONSTITUTIONAL: Fatigue and tiredness noted without symptoms of fever or chills. EYES: Denies any burning, redness, or tenderness. EARS, NOSE, AND THROAT: Denies sore throat, hoarseness, otalgia, postnasal drainage, or epistaxis. CARDIOVASCULAR: Denies anginal pain, edema, or pain of the lower extremities. GASTROINTESTINAL: Denies dysphagia, nausea, vomiting, diarrhea, abdominal pain, hematemesis, melena, or hematochezia. SKIN: Denies lesions or rashes. CENTRAL NERVOUS SYSTEM: Generalized weakness and fatigue noted without symptoms of syncopal episode or seizures. Remaining systems were reviewed with the patient, they were noted all negative. PAST MEDICAL HISTORY: 1. Advanced COPD. 2. Congestive heart failure with systolic dysfunction. 3. History of noncompliance. 4. Chronic nicotine dependence. 5. Ischemic cardiomyopathy. 6. Chronic hypoxic and hypercapnic respiratory failure. 7. Protein-calorie malnutrition status. 8. History of rheumatoid arthritis. 9. History of chronic anemia. 10. Essential hypertension. 11. Chronic kidney disease stage III. 12. Cardiac dysrhythmia, on anticoagulation. 13. Coronary artery disease. 14. Atherosclerotic carotid vascular disease. [place], [place] REPORT OF CONSULTATION NAME: SHAHANA STEWARD UNIT #: [id number] ROOM: [facility] DOCTOR: CIARA MIRANDA MD,ERINN BIRTHDATE: [birth year] PAST SURGICAL HISTORY: 1. Left carotid endarterectomy. 2. Bypass grafting. 3. Pacemaker insertion. 4. Bilateral thoracentesis. SOCIAL HISTORY: The patient is and lives at home. Two children. Smoking noted since teenager, 3 packs of cigarettes per day. Currently smoking about a pack or more of cigarettes per day. Denies occupation-related pulmonary exposure. FAMILY HISTORY: Father , unknown medical illnesses, details were not known. Mother in a motor vehicle accident. CURRENT ADMINISTERED MEDICATIONS: Noted use of aspirin, Lipitor, Protonix, Coreg, Solu-Medrol intravenously, magnesium hydroxide, Levaquin, Restoril, Zosyn, and Vicodin. ALLERGIES: Noted no known drug allergies. PHYSICAL EXAMINATION: GENERAL: A 76-year-old male who has been currently noted awake and alert without any acute distress at this time. Height of 5 feet 6 inches, weight 140 pounds, BMI 23.7. VITAL SIGNS: Recorded a normal temperature. Respiratory rate 16-20 to the highest. The heart rate ranged between 144, atrial fibrillation with rapid ventricular response, to 82 this morning. Blood pressure 92/55-122/63. Pulse oxygen saturation on 4 L nasal cannula 96% saturation recorded. Previously on the BiPAP in the Emergency Room, noted as 84%. HEENT: Shows head was atraumatic. Eyes nonicterus. NECK: Supple. CARDIOVASCULAR: S1, S2 audible. LUNGS: Diffuse reduction in breath sounds noted bilaterally with scattered wheezing. There are occasional crackles also present. ABDOMEN: Soft, flat, and nontender. EXTREMITIES: Show no edema, clubbing, or cyanosis. LABORATORY DATA: Arterial blood gases on 10 liters high flow nasal cannula in the Emergency Room, pH of 7.15, pCO2 of 69, and pO2 of 61.7. CBC on 02/13/2017, WBC count 19.2, hemoglobin 10.5, hematocrit 37.0, and platelet count 288,000. Lactic acid 5.6 on admission with subsequent lactic acid noted at 2.0. CMP on 02/13/2017, BUN 32, creatinine 1.59, and glucose 206. Troponin first set 0.09 yesterday. Second set of troponin was elevated at 6.32. PT/PTT yesterday noted with INR 3.7 and PTT 33.7. Troponins which were done yesterday in the evening noted as 8.4. INR today was still noted elevated at 4.1. CMP this morning, BUN 38, creatinine 1.77, and glucose 145. CBC on 02/14/2017, hemoglobin 9.0, hematocrit 29.3, WBC count normal, and platelet count was normal. Review of the radiology data: Chest x-ray of the patient that was done on 02/13/2017 shows evidence of congestive heart failure. The patient was noted worsened compared to previous chest x-ray with bilateral small pleural effusion. [place], [place] REPORT OF CONSULTATION NAME: SHAHANA STEWARD UNIT #: [id number] ROOM: [facility] DOCTOR: CIARA MIRANDA MD,[facility] BIRTHDATE: [birth year] IMPRESSION: 1. The patient with bqzvx-ll-xbixdaz severe congestive heart failure with systolic dysfunction as well as possibly non-Q-wave ST segment elevation myocardial infarction and as a result lactic acidosis. 2. Cardiac dysrhythmia and tachycardia, seem to be better at this time. 3. Bilateral pleural fluid secondary to the above. 4. Acute exacerbation of chronic obstructive pulmonary disease. 5. The patient with history of noncompliance previously. 6. Protein-calorie malnutrition status. 7. Acute Coumadin toxicity noted on admission as well. PLAN OF MANAGEMENT: Continue use of the BiPAP. Obtain another arterial blood gases to assess the improvement in the ventilatory status. Cardiology consultation for assessment of normal troponins. Use of noninvasive ventilator will be determined. Tobacco cessation was addressed with the patient. ____ nicotine replacement patch if the patient continues nicotine withdrawal. Antibiotic spectrum, the patient ____ decreased to a short-spectrum intravenous antibiotics since the current findings were noted consistent with more of congestive heart failure, acute onset, rather than any acute major pneumonia and others. Also reduce the dose of Solu-Medrol to 40 mg b.i.d. at this time. Pleural fluid will be monitored. Monitoring the kidney toxicity and adjust medication accordingly. Supportive therapy, plan of management and care. Continue other comfort treatment for this patient as well. Usual care. ERINN URBINA MD CM:CONSTR:REPORT OF CONSULTATION 1215 02/14/17 1321 interface
--- NOTE | ~2017-02-13 | CON ---
[place], [place] REPORT OF CONSULTATION NAME: SHAHANA STEWARD [facility] #: [id number] UNIT #: [id number] ROOM: [facility] DOCTOR: MARQUITA LAKE MD BIRTHDATE: [birth year] DOS: 02/13/2017 CARDIOLOGY CONSULTATION The patient was seen. REASON FOR CONSULTATION: Elevated troponin level. HISTORY OF PRESENT ILLNESS: The patient is a 76-year-old man with a long history of atherosclerotic heart disease and ischemic cardiomyopathy, congestive heart failure, COPD with home oxygen, hypertension and previous bypass surgery who presented to [facility] [place] [facility] again today for dyspnea. He has had multiple recent hospitalizations including a hospitalization a month ago when he presented with dyspnea, but signed out AMA on 01/17/2017. He returned to the hospital with dyspnea and signs of heart failure on 01/23/2017. He was diuresed with improvement and was discharged, but presented again to the hospital on 01/29/2017 with worsening dyspnea again. He claimed that he was not discharged with diuretics, even though furosemide was listed on his discharge medical requisition. The patient is known to have a severe ischemic cardiomyopathy. His last echocardiogram on 01/29/2017 showed an ejection fraction between 10 and 15% with stage 2 diastolic dysfunction. The mitral leaflets showed decreased excursion consistent with a low flow state. In addition, he had moderate mitral insufficiency, but no stenosis. The patient was discharged from [facility] to the [facility] where he states that he resumed smoking about a pack of cigarettes a day. He stated that while he was there, he was able to stay on BiPAP, especially at night and this helped him breathe. He was discharged to his own home about 4 days ago. He requested a BiPAP machine for home, but this was denied by his insurance company most likely because he did not have a sleep study. His breathing worsened at home and this morning, he became acutely short of breath. He denied having any chest pain. He presented to the Emergency Room where his pulse was about 145. I reviewed his electrocardiogram and could not determine whether he was in sinus rhythm or atrial flutter; however, he had his normal underlying right bundle branch block and no acute changes when compared to tracings done a few weeks ago. He was treated in the Emergency Room and his heart rate slowed. His initial troponin level was 0.099. However, upon repeat the troponin donya dramatically to 6.22 and Cardiology was consulted at that time. On exam, currently the patient states that he is feeling fairly well. He is breathless but not as bad as he was this morning. He continues to deny any chest pain. His electrocardiogram once his heart had slowed down continues to show a right bundle branch block with nonspecific ST and T-wave changes. He does have chronic ST elevation in V1 and V2, which is unchanged from 2 or 3 weeks ago. PAST MEDICAL HISTORY: Includes, [place], [place] REPORT OF CONSULTATION NAME: SHAHANA STEWARD UNIT #: [id number] ROOM: [facility] DOCTOR: MARQUITA LAKE MD BIRTHDATE: [birth year] 1. Severe chronic obstructive lung disease. 2. Long-term and ongoing cigarette abuse. The patient had smoked up to 3 packs a day, but recently has been smoking 1 pack per day. 3. History of coronary artery disease status post bypass surgery in the past. 4. Ischemic cardiomyopathy with ejection fraction documented 10-15%. 5. ICD in place. Device was placed about 2006. 6. History of carotid endarterectomy. 7. Chronically elevated troponin level. 8. Essential hypertension. 9. Prediabetes. 10. Valvular heart disease with aortic sclerosis and moderate mitral insufficiency (probably secondary to patient's left ventricular systolic dysfunction.) 11. Recurrent pneumonias. MEDICATIONS PRIOR TO ADMISSION: Aspirin 81 mg daily, carvedilol 6.25 mg b.i.d., Celebrex 200 mg daily, doxycycline 100 mg q. 12h., furosemide 40 mg b.i.d., losartan 25 mg daily, pravastatin 80 mg daily, prednisone 5 mg daily and warfarin 7.5 mg daily to maintain an INR between 2 and 3. ALLERGIES: The patient has no known drug allergies. REVIEW OF SYSTEMS: The patient denies diplopia or loss of vision. He denies lightheadedness or syncope. He denies focal weakness. He denies orthopnea or PND. He denies fevers or chills. He does have dyspnea and cough which is moderately productive. He does note chronic weakness. He denies nausea or vomiting. He denies hemoptysis or hematemesis. He denies blood in his stool or urine. He denies change in bowel or bladder habits. He denies peripheral edema or skin rashes. The remainder of the review of systems is negative except as noted above. SOCIAL HISTORY: The patient has been a long-term smoker and continues to smoke at least a pack of cigarettes a day. PHYSICAL EXAMINATION: GENERAL: The patient is an elderly white male who is awake, alert and oriented. VITAL SIGNS: Pulse is 94 and regular, blood pressure is 119/59. He is afebrile, respiratory rate is 20, bedside pulse oximetry while the patient is on BiPAP with 45% oxygen is 98%. HEENT: Normocephalic, atraumatic. Extraocular muscles are intact. Sclerae are clear. Pupils are equal, round and reactive to light. The oral mucosa is moist. Tongue is midline. NECK: Supple. He has no jugular distention but he does have hepatojugular reflux. Carotids are full. I heard no bruits. He had no neck or supraclavicular masses. Respirations are labored at rest but he is not using accessory muscles. He does have markedly decreased breath sounds at the bases with expiratory prolongation bilaterally. There were no wheezes or rales. He had no presacral edema or chest wall tenderness. CARDIOVASCULAR: His heart had a regular rhythm. He had a fourth heart sound, but no third heart sound. He has a grade 2/6 systolic ejection murmur along [place], [place] REPORT OF CONSULTATION NAME: SHAHANA STEWARD UNIT #: [id number] ROOM: [facility] DOCTOR: MARQUITA LAKE MD BIRTHDATE: [birth year] left sternal border radiating toward the base. He had a harsh grade 4/6 holosystolic murmur at the lower left sternal border radiating into the axilla. No diastolic murmurs were present. ABDOMEN: Soft and normally active without masses, organomegaly or bruits. EXTREMITIES: Showed no clubbing, cyanosis or edema. Peripheral pulses were palpable in the feet. LABORATORY DATA: I reviewed his electrocardiogram. As noted above, on admission, he had a supraventricular regular tachycardia, which may have been atrial flutter with 2:1 block, heart rate was about 145. He showed a right bundle branch block with no other changes compared to previous tracings. A subsequent electrocardiogram obtained after his heart rate had slowed, was unchanged from a tracing dated 02/02/2017. Hemoglobin is 10.5, hematocrit 37.0, white count 19,200, platelet count 388,000. INR 3.7. Blood gas today showed a pH of 7.153 with a pCO2 of 69 and a pO2 of 61.7, bicarb was 23.6. Initial troponin level was 0.099 and donya 6 hours later to 6.220. Please note that the patient's normal troponin is usually between 0.15 and 0.25. IMPRESSION: 1. Acute non-ST elevation myocardial infarction based on the cardiogram. I cannot determine the location of the infarction. 2. Long-term and ongoing cigarette abuse. 3. Severe chronic obstructive pulmonary disease which is probably at end-stage. 4. History of coronary artery disease status post bypass surgery in the past. 5. Severe ischemic cardiomyopathy with baseline ejection fraction 10-15%. 6. Implantable cardioverter defibrillator in place. The patient questions whether the batteries on the device are still functioning; however. PLAN: I had a long octavia conversation with the patient. I told him that between his underlying coronary artery disease, his baseline left ventricular systolic dysfunction, and his severe lung disease his prognosis was extremely poor. I told him that I thought that the current event could result in his . I told him that I did not think we had many options for ongoing care. I offered him a choice between staying at [facility] and receiving essentially comfort care or being transferred to a tertiary care center where he probably would receive supportive care for the first 24-48 hours and then possibly undergo catheterization with the possibility of revascularization. I told him that I did not think revascularization would improve his left ventricular function, but might prevent further problems down the line. I told him that if we transferred him we would likely also refer him to a heart failure specialist who could tell us what other options we have for management of his poor left ventricular function. He listened to all of this and told me that he did not want to be transferred and would accept whatever came his way at [facility]. He specifically told me that he did not want to be resuscitated should his heart stop and he did not want to be placed on a breathing machine. He would accept BiPAP, but not intubation. His status is DNR-CCA and I believe that this is a reasonable decision on his part. For now, we will continue his beta blockers, aspirin and warfarin and treat him [place], [place] REPORT OF CONSULTATION NAME: SHAHANA STEWARD UNIT #: [id number] ROOM: [facility] DOCTOR: JAYA RAMOS,MARQUITA BIRTHDATE: [birth year] with diuretics if needed. I will obtain an echocardiogram to reassess left ventricular function. There is no plan for advanced cardiac diagnostics or therapeutics at this time. [facility] Cardiology and I thank the hospitalist group for asking our advice regarding his care. MARQUITA LAKE MD CM:CONSTR:REPORT OF CONSULTATION [id number] 02/14/17 0233 interface
--- NOTE | ~2017-02-13 | PR ---
[place], [place] PROGRESS NOTE NAME: SHAHANA STEWARD [facility] #: [id number] UNIT #: [id number] ROOM: [facility] DOCTOR: MARQUITA LAKE MD BIRTHDATE: [birth year] DOS: 02/14/2017 SUBJECTIVE: The patient was seen at his bedside today on 02/14/2017 for followup of his atherosclerotic heart disease, ischemic cardiomyopathy, congestive heart failure, and acute myocardial infarction. He is a 76-year-old man who is known to have severe ischemic cardiomyopathy, previously his ejection fraction was calculated to be around 10-15%. He has had multiple hospitalizations recently with respiratory failure, but presented to the hospital on this occasion with sudden onset of breathlessness and a marked elevation in his troponin. He had no EKG changes over his baseline, but his biomarkers are diagnostic of an acute cardiac event. He is being treated medically and does feel better. He really has very few if any options for further revascularization and has told me that he does not want to have another heart catheterization or any surgery. The patient's ICD was interrogated today and indeed the battery is nearly depleted. It triggered an elective replacement warning in December of this year. The device still works, but will take considerably longer than usual to charge for cardioversion. The device should be replaced, but the patient tells me he does not want to have any surgery on the device. PHYSICAL EXAMINATION: VITAL SIGNS: Today, his pulse is 85 and regular, blood pressure is 104/55. He is febrile. NECK: Supple. He has no jugular distention. He does have mild hepatojugular reflux. Carotids are full. I heard no bruits. LUNGS: Respirations were unlabored. His chest has decreased breath sounds bilaterally with marked expiratory prolongation, but no wheezes. HEART: Has a regular rhythm with an S4. I did not hear a third heart sound. ABDOMEN: Soft and normally active. EXTREMITIES: Showed no edema. IMPRESSION: 1. Acute non-ST elevation myocardial infarction. 2. Long-term and ongoing cigarette abuse. 3. Severe chronic obstructive pulmonary disease, which is probably at end-stage. 4. History of coronary artery disease status post bypass surgery. 5. Severe ischemic cardiomyopathy with baseline ejection fraction 10-15%. 6. Implantable cardioverter defibrillator in place. The device is at end of life and should have the generator changed. The patient is refusing this. PLAN: I had a long and octavia discussion with him on 02/13/2017. He does realize that his prognosis is extremely poor, but wishes no aggressive management strategies. We will continue to monitor him medically. Hospice care seems appropriate if he will accept that. I thank the hospitalist group for asking our advice regarding his management. [place], [place] PROGRESS NOTE NAME: SHAHANA STEWARD UNIT #: [id number] ROOM: [facility] DOCTOR: MARQUITA LAKE MD BIRTHDATE: [birth year] MARQUITA LAKE MD CM:WILLIAM [id number] MARQUITA LAKE MD 02/14/17 [phone] interface
[~2017-02-13 10:06] MED LIST changes: +BIPAP DEVI; +CARVEDILOL6.25 MG PO; +DOXYCYCLINE MO100 M1 PO; +HYDRALAZINE HYD50 MG PO; +Isordil20 MG PO
[2017-02-13 10:26] LABS: ABG CO2 CONTENT 25.7 mmol/L (23-27); ABG HCO3 23.6 mmol/l (22-26); ABG TEMPERATURE 97.5 F (98.0-99.0); ARTERIAL BLOOD GAS PO2 61.7 mmHg (80-90)
[2017-02-13 10:31] LABS: ABG BASE EXCESS -5.9 mmol/L (-2.0-2.0); ARTERIAL BLOOD GAS PH 7.153 (7.35-7.45)
[2017-02-13 10:36] LABS: BASO # 0.1 10*3/uL (0.0-0.1); BASO % 0.4 % (0.0-1.0); EOS # 0.4 10*3/uL (0.0-0.4); HEMOGLOBIN 10.5 g/dl (14.0-18.0); IG # 0.3 10*3/uL (0.0-0.1); LYMPH # 4.2 10*3/uL (1.3-4.4); LYMPH % 21.9 % (27.0-41.0); MEAN CELL VOLUME 88.5 fl (80.0-94.0); MEAN CORPUSCULAR HGB 25.1 pg (27.0-31.0); MEAN CORPUSCULAR HGB CONC 28.4 g/dl (33.0-37.0); MEAN PLATELET VOLUME 10.4 fl (9.6-12.3); MONO # 1.3 10*3/uL (0.1-1.0); MONO % 6.8 % (3.0-9.0); NEUT % 67.5 % (47.0-73.0); PLATELET COUNT AUTOMATED 388 10*3/uL (130-400); RED BLOOD COUNT 4.18 10*6/uL (4.50-5.90); RED CELL DISTRI WIDTH 20.7 % (0-14.5); WHITE BLOOD COUNT 19.2 10*3/uL (4.8-10.8)
[2017-02-13 10:48] LABS: ALBUMIN 3.1 gm/dl (3.1-4.5); BILIRUBIN, TOTAL 0.4 mg/dl (0.2-1.0); POTASSIUM 4.1 mmol/L (3.5-5.1)
[2017-02-13 10:51] LABS: TROPONIN I 0.099 ng/ml (<0.045)
[2017-02-13 12:11] LABS: BILIRUBIN NEGATIVE (NEGATIVE); BLOOD NEGATIVE (NEGATIVE); CLARITY SL CLOUDY (CLEAR); COLOR YELLOW (YELLOW); GLUCOSE NEGATIVE (NEGATIVE); KETONE NEGATIVE (NEGATIVE); LEUKO ESTERASE NEGATIVE (NEGATIVE); NITRITE NEGATIVE (NEGATIVE); PROTEIN NEGATIVE (NEGATIVE); UROBILINOGEN 0.2 E.U./dl (0.2-1.0)
[2017-02-13] MEDS ORDERED: CELECOXIB200 M1 PO (12:16)
[2017-02-13 12:29] LABS: LA>2 REFLEX 2 HR DRAW NOW
[2017-02-13 12:37] LABS: BACTERIA TRACE; URINE REFLEX COMMENT NO (NO)
[2017-02-13 17:17] LABS: INTERNATIONAL NORM RATIO 3.7 (2.0-3.5); PROTHROMBIN TIME 42.7 SECONDS (9.0-12.4)
[2017-02-14] VITALS: BP 91/48
[2017-02-14 04:00] VITALS: BP 91/50
[2017-02-14 06:08] LABS: INTERNATIONAL NORM RATIO 4.1 (2.0-3.5)
[2017-02-14 06:10] LABS: ALBUMIN 2.6 gm/dl (3.1-4.5); BILIRUBIN, TOTAL 0.5 mg/dl (0.2-1.0); PHOSPHOROUS 2.9 mg/dL (2.5-4.9); POTASSIUM 4.4 mmol/L (3.5-5.1); TOTAL PROTEIN 6.9 gm/dL (6.4-8.2)
[2017-02-14 06:20] LABS: BASO % 0.1 % (0.0-1.0); EOS % 0.1 % (1.0-4.0); IG # 0.1 10*3/uL (0.0-0.1); LYMPH # 0.9 10*3/uL (1.3-4.4); MEAN CORPUSCULAR HGB CONC 30.7 g/dl (33.0-37.0); MEAN PLATELET VOLUME 10.6 fl (9.6-12.3); MONO # 0.1 10*3/uL (0.1-1.0); MONO % 1.2 % (3.0-9.0); NEUT # 8.2 10*3/uL (2.3-7.9); NEUT % 87.9 % (47.0-73.0); PLATELET COUNT AUTOMATED 293 10*3/uL (130-400); RED BLOOD COUNT 3.46 10*6/uL (4.50-5.90); RED CELL DISTRI WIDTH 20.6 % (0-14.5); WHITE BLOOD COUNT 9.4 10*3/uL (4.8-10.8)
[2017-02-14 06:27] LABS: HEMATOCRIT 29.3 % (42.0-52.0); MEAN CELL VOLUME 84.7 fl (80.0-94.0)
[2017-02-14 08:00] VITALS: BP 92/55
[2017-02-14 09:15] LABS: VITAMIN D, 25-HYDROXY 31.1 ng/mL (30-100)
[2017-02-14 09:16] LABS: FOLIC ACID 9.26 ng/mL (>5.38)
[2017-02-14 12:00] VITALS: BP 90/40
[2017-02-14 16:00] VITALS: BP 104/55
[2017-02-14 20:00] VITALS: BP 113/59
[2017-02-15] VITALS: BP 114/61
[2017-02-15 04:00] VITALS: BP 101/68
[2017-02-15 05:54] LABS: BASO % 0.1 % (0.0-1.0); HEMOGLOBIN 8.3 g/dl (14.0-18.0); IG # 0.2 10*3/uL (0.0-0.1); LYMPH # 1.3 10*3/uL (1.3-4.4); LYMPH % 8.4 % (27.0-41.0); MEAN CELL VOLUME 84.3 fl (80.0-94.0); MEAN CORPUSCULAR HGB CONC 29.6 g/dl (33.0-37.0); MEAN PLATELET VOLUME 10.5 fl (9.6-12.3); MONO # 0.6 10*3/uL (0.1-1.0); MONO % 3.9 % (3.0-9.0); NEUT # 13.4 10*3/uL (2.3-7.9); NEUT % 86.6 % (47.0-73.0); PLATELET COUNT AUTOMATED 272 10*3/uL (130-400); RED BLOOD COUNT 3.32 10*6/uL (4.50-5.90); RED CELL DISTRI WIDTH 20.6 % (0-14.5); WHITE BLOOD COUNT 15.4 10*3/uL (4.8-10.8)
[2017-02-15 06:12] LABS: ALBUMIN 2.8 gm/dl (3.1-4.5); BILIRUBIN, TOTAL 0.3 mg/dl (0.2-1.0); POTASSIUM 4.3 mmol/L (3.5-5.1); TOTAL PROTEIN 6.7 gm/dL (6.4-8.2)
[2017-02-15 06:48] LABS: INTERNATIONAL NORM RATIO 4.2 (2.0-3.5); PROTHROMBIN TIME 47.2 SECONDS (8.9-12.2)
[2017-02-15 08:00] VITALS: BP 98/60
[2017-02-15] MEDS ORDERED: DOXYCYCLINE MO100 M1 PO (09:31)
[2017-02-15 12:00] VITALS: BP 126/60
[2017-02-15 15:57] VITALS: BP 107/65
[2017-02-15 20:00] VITALS: BP 138/80
[2017-02-16] VITALS: BP 128/64
[2017-02-16 03:56] VITALS: BP 106/64
[2017-02-16 08:00] VITALS: BP 126/66
[2017-02-16 09:30] LABS: INTERNATIONAL NORM RATIO 2.5 (2.0-3.5); PROTHROMBIN TIME 28.5 SECONDS (9.0-12.4)
[2017-02-16 12:00] VITALS: BP 149/79
[2017-02-16] MEDS ORDERED: WARFARIN SOD5 MG PO (12:15)
[2017-02-16] MEDS ORDERED: PREDNISONE10 MG PO (12:15)
[2017-02-16] MEDS ORDERED: DOXYCYCLINE MO100 M1 PO (12:15)
== END 2017-02-16 15:21 | disposition hospice, home (50) | DRG 871 ==
LOC: ED 10:06 → EDHOLD 11:15 → ICCU 11:15
PROVIDERS: Emergency Medicine; Internal Medicine; Internal Medicine Hospice and Palliative Medicine; Student in an Organized Health Care Education/Training Program
PROC: 5A09457 Assistance with Respiratory Ventilation, 24-96 Consecutive Hours, Continuous Positive Airway Pressure (ICD-10-PCS; principal; 2017-02-13)
DX: A41.9 Sepsis, unspecified organism (principal); J96.22 Acute and chronic respiratory failure with hypercapnia; I21.4 Non-ST elevation (NSTEMI) myocardial infarction; J96.21 Acute and chronic respiratory failure with hypoxia; I50.42 Chronic combined systolic (congestive) and diastolic (congestive) heart failure; I42.0 Dilated cardiomyopathy; I13.0 Hypertensive heart and chronic kidney disease with heart failure and stage 1 through stage 4 chronic kidney disease, or unspecified chronic kidney disease; J44.1 Chronic obstructive pulmonary disease with (acute) exacerbation; E46 Unspecified protein-calorie malnutrition; R65.20 Severe sepsis without septic shock; N18.3 Chronic kidney disease, stage 3 (moderate); D64.9 Anemia, unspecified; F17.210 Nicotine dependence, cigarettes, uncomplicated; I25.10 Atherosclerotic heart disease of native coronary artery without angina pectoris; T45.515A Adverse effect of anticoagulants, initial encounter; I25.5 Ischemic cardiomyopathy; Z66 Do not resuscitate; Z51.5 Encounter for palliative care; Z99.81 Dependence on supplemental oxygen; Z79.2 Long term (current) use of antibiotics; Z71.6 Tobacco abuse counseling; Z95.1 Presence of aortocoronary bypass graft; Z79.82 Long term (current) use of aspirin; Z79.01 Long term (current) use of anticoagulants; Z91.19 Patient's noncompliance with other medical treatment and regimen; Y92.89 Other specified places as the place of occurrence of the external cause; Z79.899 Other long term (current) drug therapy; Z95.5 Presence of coronary angioplasty implant and graft; Z95.810 Presence of automatic (implantable) cardiac defibrillator; Z84.89 Family history of other specified conditions

== ENCOUNTER 2017-02-27 16:41 | Inpatient (IN) | payer OTHER ==
[~2017-02-27] VITALS: Ht 167.6 cm; Wt 69.0 kg
[2017-02-27 16:41] VITALS: BP 109/41
[~2017-02-27 16:41] MED LIST changes: +CELECOXIB200 M1 PO; +WARFARIN SOD5 MG PO
[2017-02-27 18:03] LABS: BASO % 0.1 % (0.0-1.0); EOS # 0.1 10*3/uL (0.0-0.4); EOS % 0.4 % (1.0-4.0); HEMATOCRIT 29.6 % (42.0-52.0); HEMOGLOBIN 8.8 g/dl (14.0-18.0); IG # 0.1 10*3/uL (0.0-0.1); LYMPH # 2.2 10*3/uL (1.3-4.4); LYMPH % 12.5 % (27.0-41.0); MEAN CELL VOLUME 85.1 fl (80.0-94.0); MEAN CORPUSCULAR HGB 25.3 pg (27.0-31.0); MEAN CORPUSCULAR HGB CONC 29.7 g/dl (33.0-37.0); MEAN PLATELET VOLUME 10.7 fl (9.6-12.3); MONO # 1.2 10*3/uL (0.1-1.0); NEUT % 79.3 % (47.0-73.0); NUCLEATED RED BLOOD CELL 0.1 10*3/uL (0.0-0.0); NUCLEATED RED BLOOD CELL 0.5 % (0.0-0.0); PLATELET COUNT AUTOMATED 145 10*3/uL (130-400); RED BLOOD COUNT 3.48 10*6/uL (4.50-5.90); RED CELL DISTRI WIDTH 23.6 % (0-14.5); WHITE BLOOD COUNT 17.6 10*3/uL (4.8-10.8)
[2017-02-27 18:22] LABS: ALBUMIN 2.9 gm/dl (3.1-4.5); BILIRUBIN, TOTAL 1.9 mg/dl (0.2-1.0); POTASSIUM 4.6 mmol/L (3.5-5.1); TOTAL PROTEIN 6.2 gm/dL (6.4-8.2)
[2017-02-27 18:24] VITALS: BP 104/50
[2017-02-27 18:25] LABS: TROPONIN I 0.13 ng/ml (<0.045)
[2017-02-27 19:28] VITALS: BP 93/60
[2017-02-27 22:00] VITALS: BP 105/60
[2017-02-27 22:29] VITALS: BP 111/57
[2017-02-27 23:12] VITALS: BP 114/68
[2017-02-28] VITALS: BP 140/69
[2017-02-28 00:50] VITALS: BP 140/69
[2017-02-28 04:49] LABS: BASO % 0.1 % (0.0-1.0); EOS # 0.2 10*3/uL (0.0-0.4); EOS % 1.2 % (1.0-4.0); IG # 0.1 10*3/uL (0.0-0.1); LYMPH # 2.1 10*3/uL (1.3-4.4); LYMPH % 15.4 % (27.0-41.0); MEAN CELL VOLUME 84.6 fl (80.0-94.0); MEAN CORPUSCULAR HGB 25.1 pg (27.0-31.0); MEAN CORPUSCULAR HGB CONC 29.6 g/dl (33.0-37.0); MEAN PLATELET VOLUME 11.5 fl (9.6-12.3); NEUT # 10.6 10*3/uL (2.3-7.9); NEUT % 75.9 % (47.0-73.0); NUCLEATED RED BLOOD CELL 0.1 10*3/uL (0.0-0.0); NUCLEATED RED BLOOD CELL 0.4 % (0.0-0.0); PLATELET COUNT AUTOMATED 131 10*3/uL (130-400); RED BLOOD COUNT 3.19 10*6/uL (4.50-5.90); RED CELL DISTRI WIDTH 23.5 % (0-14.5); WHITE BLOOD COUNT 13.9 10*3/uL (4.8-10.8)
[2017-02-28 05:08] LABS: FREE T4 1.4 ng/dl (0.76-1.46); POTASSIUM 4.2 mmol/L (3.5-5.1)
[2017-02-28 05:14] LABS: THYROID STIM HORMONE (HS) 2.52 uIU/ml (0.358-4.75)
[2017-02-28 07:27] LABS: FOLIC ACID 9.75 ng/mL (>5.38); VITAMIN D, 25-HYDROXY 30.7 ng/mL (30-100)
[2017-02-28 08:00] VITALS: BP 114/54
[2017-02-28 12:00] VITALS: BP 105/57
[2017-02-28 16:00] VITALS: BP 103/57
[2017-02-28 19:41] LABS: PROTHROMBIN TIME > 130.0 SECONDS (9.0-12.4)
[2017-02-28 19:44] LABS: INTERNATIONAL NORM RATIO > 10.6 (2.0-3.5)
[2017-02-28 20:00] VITALS: BP 81/42; BP 92/58
[2017-03-01] VITALS: BP 93/50
[2017-03-01 06:51] LABS: PROTHROMBIN TIME 115.6 SECONDS (9.0-12.4)
[2017-03-01 07:13] LABS: INTERNATIONAL NORM RATIO 9.4 (2.0-3.5)
[2017-03-01 08:00] VITALS: BP 109/58
[2017-03-01 16:00] VITALS: BP 110/62
[2017-03-02] VITALS: BP 94/51
[2017-03-02 06:27] LABS: INTERNATIONAL NORM RATIO 1.9 (2.0-3.5); PROTHROMBIN TIME 21.3 SECONDS (9.0-12.4)
[2017-03-02 08:00] VITALS: BP 105/65
[2017-03-02] MEDS ORDERED: DULE1ARO INH (08:40)
[2017-03-02] MEDS ORDERED: PANTOPRAZOLE SO40 MG PO (08:40)
[2017-03-02] MEDS ORDERED: COUMADIN3 M1 PO (08:40)
[2017-03-02] MEDS ORDERED: DOXYCYCLINE MO100 M1 PO (08:40)
[2017-03-02] MEDS ORDERED: DUONEB 3 MG/3 ML3 M1 NEB (08:40)
[2017-03-02] MEDS ORDERED: PREDNISONE10 MG PO (08:40)
[2017-03-02 12:00] VITALS: BP 117/66
== END 2017-03-02 13:22 | disposition hospice, home (50) | DRG 872 ==
LOC: ED 16:41 → 4E 23:11 → EDHOLD 23:11 → 4E 23:31
PROVIDERS: Emergency Medicine; Family Medicine; Internal Medicine; Internal Medicine Hospice and Palliative Medicine
DX: A41.9 Sepsis, unspecified organism (principal); E44.0 Moderate protein-calorie malnutrition; I42.0 Dilated cardiomyopathy; I50.22 Chronic systolic (congestive) heart failure; I13.0 Hypertensive heart and chronic kidney disease with heart failure and stage 1 through stage 4 chronic kidney disease, or unspecified chronic kidney disease; J44.1 Chronic obstructive pulmonary disease with (acute) exacerbation; N18.3 Chronic kidney disease, stage 3 (moderate); F17.210 Nicotine dependence, cigarettes, uncomplicated; I25.5 Ischemic cardiomyopathy; Z51.5 Encounter for palliative care; E87.8 Other disorders of electrolyte and fluid balance, not elsewhere classified; R74.0 Nonspecific elevation of levels of transaminase and lactic acid dehydrogenase [LDH]; Z99.81 Dependence on supplemental oxygen; Z95.1 Presence of aortocoronary bypass graft; Z95.5 Presence of coronary angioplasty implant and graft; Z95.810 Presence of automatic (implantable) cardiac defibrillator; Z68.23 Body mass index [BMI] 23.0-23.9, adult

== ENCOUNTER 2017-04-05 09:35 | Emergency (ER) | payer OTHER ==
[~2017-04-05] VITALS: Wt 77.1 kg
[~2017-04-05 09:35] MED LIST changes: +COUMADIN3 M1 PO; +DULE1ARO INH; +PANTOPRAZOLE SO40 MG PO
== END 2017-04-05 12:13 ==
LOC: ED 09:35
DX: F32.9 Major depressive disorder, single episode, unspecified (principal); F17.200 Nicotine dependence, unspecified, uncomplicated; I13.0 Hypertensive heart and chronic kidney disease with heart failure and stage 1 through stage 4 chronic kidney disease, or unspecified chronic kidney disease; N18.3 Chronic kidney disease, stage 3 (moderate); I50.9 Heart failure, unspecified; I25.2 Old myocardial infarction; Z79.899 Other long term (current) drug therapy; Z95.1 Presence of aortocoronary bypass graft; Z95.5 Presence of coronary angioplasty implant and graft; Z95.818 Presence of other cardiac implants and grafts; Z79.82 Long term (current) use of aspirin; Z79.01 Long term (current) use of anticoagulants